=== PATIENT | female | born 1970 | race African-American/Black ===

== ENCOUNTER → 2018-09-24 | Outpatient (CLI) | payer BC ==
[2015-12-05 17:20] VITALS: BP 124/64
[~2018-09-24] MED LIST: NAPR500T8 PO
[2018-09-24 17:29] LABS: BASO # 0.1 x10^3/uL (0.0-0.2); BASO % 1 % (0-3); EOS # 0.2 x10^3/uL (0.0-0.7); EOS % 3 % (0-3); HEMATOCRIT 31.9 % (36.0-47.0); HEMOGLOBIN 10.5 g/dL (12.0-15.5); LYMPH # 2.4 x10^3/uL (1.0-4.8); LYMPH % 36 % (24-48); MEAN CORPUSCULAR HEMOGLOBIN 26 pg (25-35); MEAN CORPUSCULAR HGB CONC 33 g/dL (31-37); MEAN CORPUSCULAR VOLUME 79 fL (79-100); MONO # 0.8 x10^3/uL (0.0-1.1); MONO % 11 % (0-9); NEUT # 3.2 x10^3/uL (1.8-7.7); NEUT % 49 % (31-73); PLATELET COUNT 249 x10^3/uL (140-400); RED BLOOD COUNT 4.02 x10^6/uL (3.50-5.40); RED CELL DISTRIBUTION WIDTH 15.6 % (11.5-14.5); WHITE BLOOD COUNT 6.6 x10^3/uL (4.0-11.0)
[2018-09-24 17:58] LABS: FREE T4 1.08 ng/dL (0.76-1.46); THYROID STIM HORMONE (TSH) 1.192 uIU/mL (0.358-3.74)
[2018-09-25 17:09] LABS: FSH 42.4 mIU/mL (.)
== END | disposition home or self-care (01) ==
LOC: LAB 17:08
PROVIDERS: ATTEND Obstetrics & Gynecology
DX: Z01.411 Encounter for gynecological examination (general) (routine) with abnormal findings (principal); N76.0 Acute vaginitis; R23.2 Flushing
CPT/HCPCS: 36415; 83001; 84439; 84443; 85025; 86592; 86695; 86703

== ENCOUNTER 2019-03-02 17:23 | Emergency (ER) | payer BC ==
[~2019-03-02] VITALS: Ht 162.6 cm; Wt 144.0 kg
[2019-03-02 17:37] VITALS: BP 146/96
[2019-03-02] MEDS ORDERED: ONDANSETRON ODT 4 MG TAB.RAPDIS. PO ONE (18:15)
[2019-03-02] MEDS ORDERED: AZITHROMYCIN 250 MG TABLET. PO ONE (18:15)
[2019-03-02] MEDS ORDERED: cefTRIAXone IM 250 MG VIAL IM ONE (18:15)
[2019-03-02 18:18] LABS: BILIRUBIN,URINE NEGATIVE (NEG); CLARITY,URINE CLEAR; COLOR,URINE YELLOW; NITRITE,URINE NEGATIVE (NEG); PROTEIN,URINE NEGATIVE (NEG-TRACE); UROBILINOGEN,URINE 0.2 mg/dL (0.2 mg/dL)
[2019-03-02 18:26] LABS: SQUAMOUS EPITHELIAL CELL,UR FEW /LPF
[2019-03-02 18:27] LABS: BACTERIA,URINE 0 /HPF (0-FEW); RBC,URINE 0 /HPF (0-2)
--- NOTE | 2019-03-02 18:31 | PHYS DOC ---
Past Medical History Past Medical History: STD, Other Additional Past Medical Histor: TRICHOMONAS Past Surgical History: Cholecystectomy, Alcohol Use: None Drug Use: None Adult General Chief Complaint Chief Complaint: SEXUALLY TRANSMITTED DISEASE HPI HPI Patient is a 48 year old Female who presents with 3 days of yellow discharge with intermittent blood tinge, vaginal irritation and intermittent low pelvic pain. She states that last summer she had Trichomonas and that is what this feels like. She currently has no pain. She states she does have vaginal itching. Review of Systems Review of Systems GI: Intermittent low abdominal pain, denies nausea, vomiting, bloody stools or diarrhea [] : Vaginal Discharge. Denies dysuria or hematuria [] All other systems were reviewed and found to be within normal limits, except as documented in this note. Current Medications Current Medications Current Medications Medications (Trade) Dose Ordered Sig/Adelaida Start Time Stop Time Status Last Admin Dose Admin Azithromycin (Zithromax) 1,000 mg 1X ONCE 03/02/19 18:15 03/02/19 18:16 DC 03/02/19 18:31 1,000 MG Ceftriaxone Sodium (Rocephin Im) 250 mg 1X ONCE 03/02/19 18:15 03/02/19 18:16 DC 03/02/19 18:34 250 MG Ondansetron HCl (Zofran Odt) 4 mg 1X ONCE 03/02/19 18:15 03/02/19 18:16 DC 03/02/19 18:31 4 MG Allergies Allergies Allergies Coded Allergies Type Severity Reaction Last Updated Verified alcohol Allergy Severe THROAT CLOSES 10/27/13 Yes Physical Exam Physical Exam Constitutional: Well developed, well nourished, no acute distress, non-toxic appearance. [] HENT: Normocephalic, atraumatic, bilateral external ears normal, oropharynx moist, no oral exudates, nose normal. [] Eyes: PERRLA, EOMI, conjunctiva normal, no discharge. [] Neck: Normal range of motion, no tenderness, supple, no stridor. [] Cardiovascular:Heart rate regular rhythm, no murmur [] Lungs & Thorax: Bilateral breath sounds clear to auscultation [] Abdomen: Bowel sounds normal, soft, no tenderness, no masses, no pulsatile masses. [] Skin: Warm, dry, no erythema, no rash. [] Back: No tenderness, no CVA tenderness. [] Extremities: No tenderness, no cyanosis, no clubbing, ROM intact, no edema. [] Neurologic: Alert and oriented X 3, normal motor function, normal sensory function, no focal deficits noted. [] Psychologic: Affect normal, judgement normal, mood normal. Normal Physical Exam [] Current Patient Data Vital Signs Vital Signs Date Time Temp Pulse Resp B/P (MAP) Pulse Ox O2 Delivery O2 Flow Rate FiO2 03/02/19 17:37 98.4 85 18 146/96 (113) 99 98.4 Lab Values Laboratory Tests Test 03/02/19 16:32 03/02/19 17:33 Urine Collection Type Unknown Urine Color Yellow Urine Clarity Clear Urine pH 5.0 Urine Specific [place] >=1.030 Urine Protein Negative mg/dL (NEG-TRACE) Urine Glucose (UA) Negative mg/dL (NEG) Urine Ketones (Stick) Negative mg/dL (NEG) Urine Blood Negative (NEG) Urine Nitrite Negative (NEG) Urine Bilirubin Negative (NEG) Urine Urobilinogen Dipstick 0.2 mg/dL (0.2 mg/dL) Urine Leukocyte Esterase Small (NEG) Urine RBC 0 /HPF (0-2) Urine WBC 5-10 /HPF (0-4) Urine Squamous Epithelial Cells Few /LPF Urine Bacteria 0 /HPF (0-FEW) Urine Mucus Mod /LPF POC Urine HCG, Qualitative Hcg negative (Negative) Microbiology 03/02/19 Wet Prep - Final, Complete EKG EKG [] Radiology/Procedures Radiology/Procedures [] Course & Med Decision Making Course & Med Decision Making Alert and oriented. Speaks in full clear sentences. Skin pink warm and dry Abdomen is soft and nontender. Afebrile. Ambulatory with a steady gait. Patient is treated prophylactically with Rocephin and azithromycin. She is educated that she will be called in 48 hours only if her chlamydia and gonorrhea come back positive. Pelvic Exam: Flexo Operator present Abdomen: Nontender External Genitalia: Normal Skin Speculum: Normal vaginal mucosa, Yellow/ green cervical discharge Bimanual: No adnexal masses or tenderness, No CMT Dragon Disclaimer Dragon Disclaimer This electronic medical record was generated, in whole or in part, using a voice recognition dictation system. Departure Departure Impression: Primary Impression: Sexually transmissible disease Additional Impression: Trichomonas infection Disposition: HOME, SELF-CARE Condition: STABLE Referrals: HERMAN BUTLER Jr, MD (PCP) Patient Instructions: Sexually Transmitted Disease, [id number] Additional Instructions: Follow-up with adoption worker. Take medications as prescribed. Have all sexual partners treated. Scripts Metronidazole (METRONIDAZOLE) 500 Mg Tablet 1 TAB PO BID for 7 Days, #14 TAB 0 Refills Prov: ELSIE JOYA APRN 03/02/19 Problem Qualifiers ELSIE JOYA APRN Mar 02, 2019 18:31
[2019-03-02] MEDS ORDERED: METR-34 PO (19:19)
[2019-03-04 18:09] LABS: GC PROBE Negative (Negative)
== END 2019-03-02 19:40 | disposition home or self-care (01) ==
LOC: ER 17:23
DX: A64 Unspecified sexually transmitted disease (principal); A59.9 Trichomoniasis, unspecified; L29.2 Pruritus vulvae; R10.2 Pelvic and perineal pain; R10.30 Lower abdominal pain, unspecified; Z90.49 Acquired absence of other specified parts of digestive tract; Z98.890 Other specified postprocedural states; Z88.8 Allergy status to other drugs, medicaments and biological substances
CPT/HCPCS: 81001; 81025; 87086; 87491; 87591; 96372; 99284; J0696; Q0111; Q0144; Q0162

== ENCOUNTER 2019-08-25 09:54 | Emergency (ER) | payer BC ==
[~2019-08-25] VITALS: Ht 165.1 cm; Wt 149.0 kg
[~2019-08-25 09:54] MED LIST changes: +METR-34 PO
[2019-08-25] MEDS ORDERED: fentaNYL PF VIAL 100 MCG/2 ML VIAL IV ONE (10:45)
[2019-08-25] MEDS ORDERED: KETOROLAC 30 MG/ML VIAL. IV ONE (10:45)
[2019-08-25] MEDS ORDERED: IV NORMAL SALINE 1000ML BAG 1,000 ML IV ONE (10:45)
[2019-08-25] MEDS ORDERED: ONDANSETRON PF 4 MG/2 ML VIAL. IV ONE (10:45)
[2019-08-25 10:46] LABS: BASO # 0.1 x10^3/uL (0.0-0.2); BASO % 1 % (0-3); EOS # 0.1 x10^3/uL (0.0-0.7); EOS % 3 % (0-3); HEMATOCRIT 32.3 % (36.0-47.0); HEMOGLOBIN 10.6 g/dL (12.0-15.5); LYMPH # 1.8 x10^3/uL (1.0-4.8); LYMPH % 36 % (24-48); MEAN CORPUSCULAR HEMOGLOBIN 26 pg (25-35); MEAN CORPUSCULAR HGB CONC 33 g/dL (31-37); MEAN CORPUSCULAR VOLUME 79 fL (79-100); MONO # 0.6 x10^3/uL (0.0-1.1); MONO % 13 % (0-9); NEUT # 2.4 x10^3/uL (1.8-7.7); NEUT % 48 % (31-73); PLATELET COUNT 233 x10^3/uL (140-400); RED BLOOD COUNT 4.08 x10^6/uL (3.50-5.40); RED CELL DISTRIBUTION WIDTH 15.5 % (11.5-14.5); WHITE BLOOD COUNT 5.1 x10^3/uL (4.0-11.0)
[2019-08-25 10:55] LABS: CALCIUM 8.5 mg/dL (8.5-10.1); CREATININE 0.9 mg/dL (0.6-1.0); GFR 79.9
[2019-08-25 11:01] LABS: ALBUMIN 3.3 g/dL (3.4-5.0); ALBUMIN/GLOBULIN RATIO 0.8 (1.0-1.7); TOTAL BILIRUBIN 0.4 mg/dL (0.2-1.0); TOTAL PROTEIN 7.5 g/dL (6.4-8.2)
--- NOTE | 2019-08-25 11:20 | PHYS DOC ---
Past Medical History Past Medical History: No Pertinent History, STD Additional Past Medical Histor: TRICHOMONAS Past Surgical History: Cholecystectomy, Smoking Status: Never Smoker Alcohol Use: None Drug Use: None General Adult EDM: Chief Complaint: FLANK PAIN HPI: HPI: Patient is a 49-year-old female who presents with a 1 to 2-day history of left- sided flank pain. She states last night it became severe enough that she had her 10-year-old pressing on her back which seemed to cause some relief. She states the pain radiates from her left low back into her groin area. She states the pain is 10 out of 10 at its worse. She has had some nausea but no vomiting. She denies any dysuria or gross hematuria. She denies any fever chills or sweats. Currently she states the pain is moderate and sharp in nature.] Review of Systems: Review of Systems: Constitutional: Denies fever or chills. [] Eyes: Denies change in visual acuity. [] HENT: Denies nasal congestion or sore throat. [] Respiratory: Denies cough or shortness of breath. [] Cardiovascular: Denies chest pain or edema. [] GI: Denies abdominal pain, nausea, vomiting, bloody stools or diarrhea. [] : Denies dysuria. [] Musculoskeletal: Reports left-sided flank pain [] Integument: Denies rash. [] Neurologic: Denies headache, focal weakness or sensory changes. [] Endocrine: Denies polyuria or polydipsia. [] Lymphatic: Denies swollen glands. [] Psychiatric: Denies depression or anxiety. [] Heart Score: Risk Factors: Risk Factors: DM, Current or recent (<one month) smoker, HTN, HLP, family history of CAD, obesity. Risk Scores: Score 0 - 3: 2.5% MACE over next 6 weeks - Discharge Home Score 4 - 6: 20.3% MACE over next 6 weeks - Admit for Clinical Observation Score 7 - 10: 72.7% MACE over next 6 weeks - Early Invasive Strategies Current Medications: Current Medications Medications (Trade) Dose Ordered Sig/Adelaida Start Time Stop Time Status Last Admin Dose Admin Fentanyl Citrate (Fentanyl 2ml Vial) 50 mcg 1X ONCE 08/25/19 10:45 08/25/19 10:46 DC 08/25/19 10:49 50 MCG Ketorolac Tromethamine (Toradol 30mg Vial) 30 mg 1X ONCE 08/25/19 10:45 08/25/19 10:46 DC 08/25/19 10:49 30 MG Ondansetron HCl (Zofran) 4 mg 1X ONCE 08/25/19 10:45 08/25/19 10:46 DC 08/25/19 10:49 4 MG Sodium Chloride 1,000 ml @ 1,000 mls/hr 1X ONCE 08/25/19 10:45 08/25/19 11:44 08/25/19 10:48 1,000 MLS/HR Allergies: Allergies: Allergies Coded Allergies Type Severity Reaction Last Updated Verified alcohol Allergy Severe THROAT CLOSES 10/27/13 Yes Physical Exam: PE: Constitutional: Well developed, well nourished, moderate to severe distress, non-toxic appearance. [] HENT: Normocephalic, atraumatic, bilateral external ears normal, oropharynx moist, no oral exudates, nose normal. [] Eyes: PERRLA, EOMI, conjunctiva normal, no discharge. [] Neck: Normal range of motion, no tenderness, supple, no stridor. [] Cardiovascular:Heart rate regular rhythm, no murmur [] Lungs & Thorax: Bilateral breath sounds clear to auscultation [] Abdomen: Bowel sounds normal, soft, no tenderness, no masses, no pulsatile masses. [] Skin: Warm, dry, no erythema, no rash. [] Back: No tenderness, no CVA tenderness. [] Extremities: No tenderness, no cyanosis, no clubbing, ROM intact, no edema. [] Neurologic: Alert and oriented X 3, normal motor function, normal sensory function, no focal deficits noted. [] Psychologic: Anxious [] Current Patient Data: Labs: Laboratory Tests Test 08/25/19 10:40 White Blood Count 5.1 x10^3/uL (4.0-11.0) Red Blood Count 4.08 x10^6/uL (3.50-5.40) Hemoglobin 10.6 g/dL (12.0-15.5) L Hematocrit 32.3 % (36.0-47.0) L Mean Corpuscular Volume 79 fL (79-100) Mean Corpuscular Hemoglobin 26 pg (25-35) Mean Corpuscular Hemoglobin Concent 33 g/dL (31-37) Red Cell Distribution Width 15.5 % (11.5-14.5) H Platelet Count 233 x10^3/uL (140-400) Neutrophils (%) (Auto) 48 % (31-73) Lymphocytes (%) (Auto) 36 % (24-48) Monocytes (%) (Auto) 13 % (0-9) H Eosinophils (%) (Auto) 3 % (0-3) Basophils (%) (Auto) 1 % (0-3) Neutrophils # (Auto) 2.4 x10^3/uL (1.8-7.7) Lymphocytes # (Auto) 1.8 x10^3/uL (1.0-4.8) Monocytes # (Auto) 0.6 x10^3/uL (0.0-1.1) Eosinophils # (Auto) 0.1 x10^3/uL (0.0-0.7) Basophils # (Auto) 0.1 x10^3/uL (0.0-0.2) Sodium Level 136 mmol/L (136-145) Potassium Level 4.0 mmol/L (3.5-5.1) Chloride Level 104 mmol/L (98-107) Carbon Dioxide Level 25 mmol/L (21-32) Anion Gap 7 (6-14) Blood Urea Nitrogen 16 mg/dL (7-20) Creatinine 0.9 mg/dL (0.6-1.0) Estimated GFR (Cockcroft-Gault) 79.9 BUN/Creatinine Ratio 18 (6-20) Glucose Level 102 mg/dL (70-99) H Calcium Level 8.5 mg/dL (8.5-10.1) Total Bilirubin 0.4 mg/dL (0.2-1.0) Aspartate Amino Transferase (AST) 13 U/L (15-37) L Alanine Aminotransferase (ALT) 16 U/L (14-59) Alkaline Phosphatase 71 U/L (46-116) Total Protein 7.5 g/dL (6.4-8.2) Albumin 3.3 g/dL (3.4-5.0) L Albumin/Globulin Ratio 0.8 (1.0-1.7) L Lipase 54 U/L (73-393) L Laboratory Tests 08/25/19 10:40 Laboratory Tests 08/25/19 10:40 Vital Signs: Vital Signs Date Time Temp Pulse Resp B/P (MAP) Pulse Ox O2 Delivery O2 Flow Rate FiO2 08/25/19 10:49 15 99 Room Air 08/25/19 10:10 98.1 88 129/80 (96) 98.1 EKG: EKG: [] Radiology/Procedures: Radiology/Procedures: []PROCEDURE: CT ABDOMEN PELVIS WO CONTRAST Examination: CT ABDOMEN PELVIS WO CONTRAST History: Reason: left flank pain x 1 day / Spl. Instructions: / History: Comparison/Correlation: None Findings: Axial images of the abdomen and pelvis were obtained without contrast. Sagittal and coronal reformatted images were provided. Minimal linear scarring at the right middle lobe is present on axial image 12 of series 2. Liver, spleen, pancreas, adrenal glands, and kidneys are unremarkable. No radiopaque collecting system calculi or collecting system obstruction. Urinary bladder is unremarkable. Cholecystectomy noted. Appendix is normal. No bowel obstruction. Diverticulosis is seen especially at the sigmoid colon. No inflammatory findings. Uterus is unremarkable. Small umbilical hernia containing omental fat. No ascites or pelvic free fluid. No enlarged abdominal or pelvic lymph nodes. Vacuum phenomenon at the L4-5 facet joints noted. Impression: No acute inflammatory process. No obstruction. Course & Med Decision Making: Course & Med Decision Making Pertinent Labs and Imaging studies reviewed. (See chart for details) [ED course: Evaluation reveals a 49-year-old female with left-sided flank pain. Her work-up for flank pain was unrevealing. Urinalysis was negative blood work looked fine and CT scan did not show anything obvious. She was given IV fluids, Toradol, fentanyl and Zofran which did alleviate her symptoms.] Dragon Disclaimer: Dragon Disclaimer: This electronic medical record was generated, in whole or in part, using a voice recognition dictation system. Departure Departure Impression: Primary Impression: Flank pain, acute Disposition: 01 HOME, SELF-CARE Condition: IMPROVED Referrals: UNKNOWN PCP NAME (PCP) Patient Instructions: Flank Pain Additional Instructions: Return to the emergency department with any new or concerning symptoms Scripts Methocarbamol (ROBAXIN-750) 750 Mg Tablet 1 TAB PO TID, #90 TAB Prov: JANELL DALY DO 08/25/19 Naproxen (NAPROXEN) 500 Mg Tablet 1 TAB PO BID PRN for PAIN, #30 TAB 1 Refill Prov: JANELL DALY DO 08/25/19 Justicifation of Admission Dx: Justifications for Admission: Justification of Admission Dx: No JANELL DALY DO Aug 25, 2019 11:20
--- NOTE | 2019-08-25 11:45 | RAD ---
Examination: CT ABDOMEN PELVIS WO CONTRAST History: Reason: left flank pain x 1 day / Spl. Instructions: / History: Comparison/Correlation: None Findings: Axial images of the abdomen and pelvis were obtained without contrast. Sagittal and coronal reformatted images were provided. Minimal linear scarring at the right middle lobe is present on axial image 12 of series 2. Liver, spleen, pancreas, adrenal glands, and kidneys are unremarkable. No radiopaque collecting system calculi or collecting system obstruction. Urinary bladder is unremarkable. Cholecystectomy noted. Appendix is normal. No bowel obstruction. Diverticulosis is seen especially at the sigmoid colon. No inflammatory findings. Uterus is unremarkable. Small umbilical hernia containing omental fat. No ascites or pelvic free fluid. No enlarged abdominal or pelvic lymph nodes. Vacuum phenomenon at the L4-5 facet joints noted. Impression: No acute inflammatory process. No obstruction. Diverticulosis. PQRS Compliance Statement: One or more of the following individualized dose reduction techniques were utilized for this examination: 1. Automated exposure control 2. Adjustment of the mA and/or kV according to patient size 3. Use of iterative reconstruction technique Electronically signed by: Trent Banda MD (08/25/2019 11:42 AM) [id number]
[2019-08-25 12:40] LABS: BILIRUBIN,URINE NEGATIVE (NEG); CLARITY,URINE CLEAR; COLOR,URINE YELLOW; NITRITE,URINE NEGATIVE (NEG); PH,URINE 5.5 (<5.0-8.0); PROTEIN,URINE NEGATIVE (NEG-TRACE); UROBILINOGEN,URINE 0.2 mg/dL (0.2 mg/dL)
[2019-08-25 12:55] VITALS: BP 106/67
[2019-08-25 13:03] LABS: SQUAMOUS EPITHELIAL CELL,UR MOD /LPF
[2019-08-25 13:04] LABS: BACTERIA,URINE MODERATE /HPF (0-FEW)
[2019-08-25] MEDS ORDERED: METH-38 PO (13:08)
[2019-08-25] MEDS ORDERED: NAPR-514 PO (13:08)
== END 2019-08-25 13:25 | disposition home or self-care (01) ==
LOC: ER 09:54
DX: R10.9 Unspecified abdominal pain (principal); R11.0 Nausea; Z90.49 Acquired absence of other specified parts of digestive tract; Z98.890 Other specified postprocedural states; Z79.899 Other long term (current) drug therapy; Z91.048 Other nonmedicinal substance allergy status
CPT/HCPCS: 36415; 74176; 80053; 81001; 83690; 85025; 87086; 96374; 96375; 99285; J1885; J2405; J3010; J7030

== ENCOUNTER 2020-04-04 23:27 | Emergency (ER) | payer BC ==
[~2020-04-04] VITALS: Ht 165.1 cm; Wt 149.1 kg
[~2020-04-04 23:27] MED LIST changes: +CIPR500S2 PO; +DOCU-153 PO; +METH-38 PO; +METR500T PO; +NAPR-514 PO; +SENN-87 PO
--- NOTE | 2020-04-05 00:10 | PHYS DOC ---
Past Medical History Past Medical History: Anemia, STD Additional Past Medical Histor: TRICHOMONAS Past Surgical History: Cholecystectomy, Smoking Status: Never Smoker Alcohol Use: None Drug Use: None General Adult EDM: Chief Complaint: ABDOMINAL PAIN HPI: HPI: Patient is a 49 year old female with a past medical history of cholecystectomy and C-sections presents for abdominal pain. She states that she was discharged from [facility] on April 03 with a diagnosis of acute diverticulitis. She was given prescriptions for ciprofloxacin, Flagyl, docusate, and senna. She states she has been taking these medications as prescribed. She states that since Monday her abdomen has been increasing in size, she feels that she has a lot of pressure in her abdomen. She has not had any stool since Monday. She states she also had not passed gas since she has been admitted, but on the way to the emergency department she did pass a small amount of gas. She states she has also began to be short of breath as her abdomen has increased in size. She feels uncomfortable when she is breathing. She is also nauseous when she eats or drinks, but she has not vomited. She denies any fevers, chills, chest pain, headache, numbness and tingling, or weakness. She states she had one episode of incontinence of urine while at home. She denies this ever happening in the past and then denies it happening since. She denies any back pain or saddle anesthesia. Review of Systems: Review of Systems: Constitutional: Denies fever or chills. [] Eyes: Denies change in visual acuity. [] HENT: Denies nasal congestion or sore throat. [] Respiratory: Denies cough Positive shortness of breath. [] Cardiovascular: Denies chest pain or edema. [] GI: Positive abdominal pain, nausea Denies vomiting, bloody stools or diarrhea. [] : Denies dysuria. [] Musculoskeletal: Denies back pain or joint pain. [] Integument: Denies rash. [] Neurologic: Denies headache, focal weakness or sensory changes. [] Endocrine: Denies polyuria or polydipsia. [] Lymphatic: Denies swollen glands. [] Psychiatric: Denies depression or anxiety. [] Heart Score: Risk Factors: Risk Factors: DM, Current or recent (<one month) smoker, HTN, HLP, family history of CAD, obesity. Risk Scores: Score 0 - 3: 2.5% MACE over next 6 weeks - Discharge Home Score 4 - 6: 20.3% MACE over next 6 weeks - Admit for Clinical Observation Score 7 - 10: 72.7% MACE over next 6 weeks - Early Invasive Strategies Allergies: Allergies: Allergies Coded Allergies Type Severity Reaction Last Updated Verified alcohol Allergy Severe THROAT CLOSES 10/27/13 Yes Physical Exam: PE: General: alert, no acute distress. Skin: warm, dry and intact. Head:: Normocephalic, atraumatic. Neck: Trachea midline. Eyes: EOMI, Normal conjunctiva, No drainage CARDIOVASCULAR: Regular rate and rhythm RESPIRATORY: No respiratory distress Back: Full range of motion. MUSCULOSKELETAL: Full range of motion of bilateral upper and lower extremities. GASTROINTESTINAL: Abdomen soft without rebound or guarding. NEUROLOGICAL: Alert and noted to person, place and time. No neurological d eficits observed Psychiatric: Cooperative. Normal judgment EKG: EKG: [] Radiology/Procedures: Radiology/Procedures: [] Course & Med Decision Making: Course & Med Decision Making Pertinent Labs and Imaging studies reviewed. (See chart for details) [] Treatment with soapsuds enema. Patient with large BM. Patient's abdominal bloating resolved patient feels much better she will be discharged home. Adriane Disclaimer: Adriane Disclaimer: This electronic medical record was generated, in whole or in part, using a voice recognition dictation system. Departure Departure Impression: Primary Impression: Constipation Disposition: 01 DC HOME SELF CARE/HOMELESS Condition: STABLE Referrals: NO PCP (PCP) Patient Instructions: Constipation, Adult LUTHER KOCH I DO Apr 05, 2020 00:09
--- NOTE | 2020-04-05 01:14 | RAD ---
EXAM: ABDOMEN ONE VIEW. HISTORY: Abdominal pain. COMPARISON: None. FINDINGS: A frontal view of the abdomen is obtained. There are no distended small bowel loops. There is gas distally. Cholecystectomy clips are noted. IMPRESSION: 1. No evidence of obstruction. Electronically signed by: Mitch Sweet MD (04/05/2020 1:12 AM) [facility]
[2020-04-05 03:04] VITALS: BP 134/81
[2020-04-27] MEDS ORDERED: VITAMIN D2 PO (12:21)
[2020-04-27] MEDS ORDERED: DICL100G54 TP (12:21)
== END 2020-04-05 03:36 | disposition home or self-care (01) ==
LOC: ER 23:27
DX: K59.00 Constipation, unspecified (principal); Z90.49 Acquired absence of other specified parts of digestive tract; Z88.8 Allergy status to other drugs, medicaments and biological substances
CPT/HCPCS: 74018; 99285-25

== ENCOUNTER → 2020-04-24 | Outpatient (CLI) | payer BC ==
[2020-04-05 03:04] VITALS: BP 134/81
[~2020-04-24] MED LIST changes: +DICL100G54 TP; +VITAMIN D2 PO
== END ==
LOC: LAB 10:23
PROVIDERS: ATTEND Internal Medicine Gastroenterology
DX: Z01.812 Encounter for preprocedural laboratory examination (principal); Z12.11 Encounter for screening for malignant neoplasm of colon; Z20.822 Contact with and (suspected) exposure to COVID-19
CPT/HCPCS: U0003

== ENCOUNTER → 2020-04-27 | Day surgery (SDC) | payer BC ==
[~2020-04-27] MED LIST changes: +IV RINGERS,LACTATED 1000ML 1,000 ML IV SCH; +LIDOCAINE 2% PF 5 ML VIAL. ONE; +PROPOFOL 10 MG/ML (20ML) VIAL. IV ONE
--- NOTE | 2020-04-27 13:43 | PDOC4 ---
PROCEDURE Procedure EGD/biopsies, colonoscopy Indication: GERD/MALGORZATA/diverticulosis Meds: per anesthesia Findings: E--Less than grade A at 40cm. G--striped antral erythema, biopsied. D--Normal, biopsies second portion. JAMI---normal --'Scope advanced to cecum. Prep adequate. Scattered diverticula, sigmoid. Mucosa normal. Internal hemorrhoids on retroflex. Christina. well. IMP: Mild esophagitis. Diverticulosis Internal hemorrhoids. No overt cause for MALGORZATA seen. REC: Resume meds, diet as before. Await path. F/u with me in 2 weeks. Might consider SBCE pending biopsies. ADLOFO HYLTON MD Apr 27, 2020 13:43
[2020-04-27 14:13] VITALS: BP 132/75
--- NOTE | 2020-04-28 14:17 | PATHOLOGY ---
[facility] Accession Number: [id number] . 01 Material submitted: . PART A: duodenum - DUODENAL BIOPSY PART B: gastrointestinal site - ANTRUM BIOPSY . 01 Clinical history: . GERD,DIVERTICULOSIS EGD COLONOSCOPY MALGORZATA . 02 Diagnosis: A. Duodenal biopsies: - No significant pathologic abnormalities. . B. Gastric biopsies, antrum: - Chronic gastritis, mild. . (JPM:mm; 04/28/2020) [facility] 04/28/2020 1037 Local . 02 Comment: Sections of the duodenal biopsy reveal segments of duodenal and small intestine mucosa. Where best oriented, the mucosal villi show no sprue-like changes or significant inflammatory changes. . Sections of the gastric biopsy reveal gastric antral and antral/body transition mucosa showing congestion and very mild chronic inflammation. A properly-controlled immunoperoxidase stain for Helicobacter is negative for Helicobacter organisms. . Special stain: Immunoperoxidase stain for Helicobacter on B1. . (JPM:mml; 04/28/2020) . 02 Electronically signed: . Shankar Fair MD, Pathologist NPI- [id number] . 01 Gross description: . A. The specimen is received in formalin, labeled "IRVIN CROSSA R, duodenum biopsy" and consist of 2 fragments of soft martin tissue measuring up to 0.3 cm. Entirely submitted in A1. . B. The specimen is received in formalin, labeled "TAY,SUNCIA R, antrum biopsy" and consist of 2 fragments of soft martin tissue measuring up to 0.4 cm. Entirely submitted in B1.([facility]; 04/27/2020) TIFFANI/TIFFANI 04/27/2020 2224 Local . 02 Pathologist provided ICD-10: K29.50, K21.9 . 02 CPT . 678279, 409354, [id number] Specimen Comment: A courtesy copy of this report has been sent to [phone] Specimen Comment: Report sent to Performed at: 01 [facility] [address] [place] [id number] MD Srinivasan Trimble MD Phone: [phone] Performed at: 02 [facility] [address], [place] [id number] MD Shankar Fair MD Phone: [phone]
== END | disposition home or self-care (01) ==
LOC: ENDOS 12:15
PROVIDERS: ATTEND Internal Medicine Gastroenterology
DX: D50.9 Iron deficiency anemia, unspecified (principal); K21.00 Gastro-esophageal reflux disease with esophagitis, without bleeding; K57.30 Diverticulosis of large intestine without perforation or abscess without bleeding; K31.89 Other diseases of stomach and duodenum; K64.0 First degree hemorrhoids; K29.50 Unspecified chronic gastritis without bleeding; M19.90 Unspecified osteoarthritis, unspecified site; Z79.899 Other long term (current) drug therapy; Z90.710 Acquired absence of both cervix and uterus; Z90.49 Acquired absence of other specified parts of digestive tract; Z98.51 Tubal ligation status; Z98.890 Other specified postprocedural states; Z88.8 Allergy status to other drugs, medicaments and biological substances
CPT/HCPCS: 43239; 45378; 88305; 88342; J2704